=== PATIENT | female | born 2000 | race Caucasian/White ===

== ENCOUNTER → 2024-12-16 | Outpatient (CLI) | payer BC ==
--- NOTE | 2024-12-16 13:19 | XR ---
EXAMINATION TYPE: XR hand complete RT DATE OF EXAM: 12/16/2024 1:03 PM INDICATION: Patient age:Female; 24 years old; Reason for study: M79.641, M79.642; H. pain COMPARISON: None TECHNIQUE: Frontal, lateral and oblique views of the right hand were obtained. FINDINGS: Normal alignment of the visualized joints. No acute osseous pathology is identified. No e vidence of soft tissue swelling. IMPRESSION: No acute osseous pathology. [facility], , 12/16/2024 1:17 PM
== END | disposition home or self-care (01) ==
LOC: RADXRMAIN 12:45
PROVIDERS: ATTEND Family Medicine
DX: M79.641 Pain in right hand (principal); M79.642 Pain in left hand